=== PATIENT | female | born 1985 | race Caucasian/White ===

== ENCOUNTER 2022-10-29 17:16 | Emergency (ER) | payer OTHER, SELFPAY ==
--- NOTE | 2022-10-29 17:20 | ED.FEMALEGU ---
HPI - Female Genitourinary General Chief complaint: Urogenital-Female Stated complaint: sugar in urine Time Seen by Provider: 10/29/22 17:19 Source: patient Mode of arrival: ambulatory Limitations: no limitations History of Present Illness HPI Narrative: Haley is a 37-year-old female patient presenting to the clinic today with complaints of sugar in her urine. She reports that she was seen for a pre-employment screening last week and was contacted yesterday regarding sugar in her urine and she notified her PCP and they stated she needed to be evaluated prior to seeing her primary care doctor next week. She denies any increasing urination, increase in hunger, or increase in thirst. She denies any urinary symptoms or back pain. No history of diabetes. Related Data Allergies Allergy/AdvReac Type Severity Reaction Status Date / Time Penicillins Allergy Severe ITCHEY RASH Verified 10/29/22 17:20 Review of Systems Review of Systems: Pertinent positives per HPI. Patient denies any fever, chills, rash, headache, visual changes, dizziness, cough, runny nose, sore throat, shortness of breath, chest pain, palpitations, nausea, vomiting, diarrhea, constipation, abdominal pain, or any urinary issues. PMFSH Comments At the time of my signature, I reviewed and agree with the nursing past medical, surgical, social, and family history. There is no relevant family history pertinent to the patient complaint. Exam Narrative: General: Well-developed, well nourished, in no apparent distress. Head: Normocephalic, atraumatic. Cardio: Regular rate and rhythm, s1 and s2 normal, no murmur appreciated. Resp: Clear to auscultation bilaterally, no rhonchi, rales, wheezing or rubs. Abdomen: Soft, pliable, bowel sounds present in all quadrants, non-tender to palpation, no organomegly, no CVAT tenderness. Course Course Emergency Course: Portions of this record may have been created with voice recognition software. Level of Care: Express Care Visit Vital Signs Vital signs: Vital Signs Temperature 36.7 C 10/29/22 17:23 Pulse Rate 91 10/29/22 17:23 Respiratory Rate 16 10/29/22 17:23 Blood Pressure 132/104 H 10/29/22 17:23 Pulse Oximetry 100 10/29/22 17:23 Temperature 36.7 C 10/29/22 17:23 Pulse Rate 91 10/29/22 17:23 Respiratory Rate 16 10/29/22 17:23 Blood Pressure 132/104 H 10/29/22 17:23 Pulse Oximetry 100 10/29/22 17:23 Vital signs reviewed MDM - Female Genitourinary MDM Narrative Medical decision making narrative: At the time of visit patient is resting comfortably on the exam table. UA and blood glucose was checked in the clinic today. Nonfasting random blood sugar was 129 in the clinic today. Urinalysis was negative for any glucose however did show 1+ leukocyte. Patient denies any urinary symptoms so we will send this for culture. Recommend follow-up with her PCP on Monday as scheduled. Supportive measures were discussed with the patient she voiced understanding of discharge instructions agrees to treatment plan Differential Diagnosis Differential diagnosis: Likely urinary tract infection and other (Glucosuria, hyperglycemia) Lab Data Labs: Lab Results 10/29/22 Range/Units 17:35 POC Capillary Glucose 129 H (65-105) mg/dl Urine Glucose Negative Reference Range: Negative Urine Bilirubin Negative Reference Range: Negative Urine Ketone Negative Reference Range: Negative Urine Specific [place] 1.010 Reference Range:1.001-1.035 Urine Blood Negative Reference Range: Negative * * Urine pH 6.
[2022-10-29 17:23] VITALS: BP 132/104; PULSE 91; RESP 16; TEMP 36.7; O2SAT 100
[2022-10-29 17:38] LABS: Glucose Point of Care 129 mg/dl (65-105)
== END 2022-10-29 17:41 | disposition home or self-care (01) ==
PROVIDERS: Emergency Provider Nurse Practitioner Family; PCP Internal Medicine
DX: R73.9 Hyperglycemia, unspecified (principal); R82.71 Bacteriuria
CPT/HCPCS: 81003; 82948; 87086; 99213; G0463

== ENCOUNTER 2022-12-23 15:51 | Emergency (ER) | payer OTHER, SELFPAY ==
[2022-12-23 16:04] VITALS: BP 128/84; PULSE 100; RESP 16; TEMP 36.6; O2SAT 100
--- NOTE | 2022-12-23 16:07 | ED.URI ---
HPI - URI/Sore Throat General Chief Complaint: Upper Respiratory Infection Stated Complaint: SORE THROAT Time Seen by Provider: 12/23/22 16:07 Source: patient Mode of arrival: ambulatory Limitations: no limitations History of Present Illness HPI Narrative: Patient is a 37-year-old female who presents with sore throat for a week. Patient states sore throat his increased in pain. Denies any congestion, ear pain, fever, chills, nausea, vomiting, diarrhea. States it just hurts to swallow. Reports frequent strep infections. Still has her tonsils Related Data Home Medications Medication Instructions Recorded Confirmed norethindrone 1 mg-ethinyl 1 tablet PO DAILY 12/23/22 12/23/22 estradiol 10 mcg (24)-iron 10 mcg(2) tablet (Lo Loestrin Fe) Allergies Allergy/AdvReac Type Severity Reaction Status Date / Time Penicillins Allergy Severe ITCHEY RASH Verified 12/23/22 15:59 Review of Systems Review of Systems: All systems reviewed & are unremarkable except as noted in HPI and below Constitutional: Constitutional: Denies body ache(s), Denies fever(s), Denies headache(s), Denies malaise and Denies weakness Eyes: Eyes: Denies loss of vision ENT: Denies otalgia, Denies headache(s), Denies nasal congestion, Denies sinus pain and Reports sore throat Cardiovascular: Cardiovascular: Denies chest pain, Denies irregular heart rhythm and Denies dyspnea Respiratory: Respiratory: Denies cough and Denies dyspnea Gastrointestinal: Gastrointestinal: Denies abdominal pain, Denies melena, Denies hematochezia, Denies diarrhea, Denies nausea and Denies vomiting Musculoskeletal: Musculoskeletal: Denies back pain, Denies myalgias and Denies arthralgias Integumentary/Breasts: Skin/Breast: Denies pruritus and Denies rash Neurologic: Denies headache(s), Denies loss of vision and Denies weakness Psychiatric: Psychiatric: Reports no additional psychiatric complaints PMFSH Comments At time of signature, agree with nursing past medical, surgical, social and family history. There is no relevant family history pertinent to the presenting complaint. Exam Const: General: cooperative, healthy appearing, comfortable, no acute distress and well nourished Nutritional Appearance: well nourished Orientation/consciousness: patient oriented x3 Limitations: no limitations HENMT: Head: normal to inspection, normocephalic and atraumatic Ears: hearing grossly normal bilaterally, external ears normal, TM's normal bilaterally and EAC's normal Face/Nose/Sinus: Normal external nose present, Normal nares present, Normal nasal mucous membranes and turbinates present, Normal septum present, normal facial exam, sinuses nontender and face symmetric Face and sinus: normal facial exam, sinuses nontender and face symmetric Mouth: Yes Normal oral and palatal mucosa present, Yes lip normal and Yes moist mucous membranes Teeth and gingiva: dentition normal Throat: uvula midline, abnormal tonsil bilateral erythema, exudates, hypertrophy 3+ and pitting, posterior oropharynx abnormal edema, erythema and exudates and postnasal drainage Eyes: General: appearance normal, both eyes and all related structures Alignment and Position: alignment normal and position normal Periorbital: periorbital findings normal Eyelids: eyelids normal Pupils: Equal, round and reactive pupils present Neck: Neck: normal visual inspection, full ROM, no lymphadenopathy and supple Chest: Chest palpation & inspection: normal inspection of the chest and normal palpation of entire chest wall Resp: Effort & Inspection: normal respiratory effort and able to speak in complete sentences Auscultation: clear to auscultation bilaterally, no crackles, no rales, no rhonchi and no wheezes Cardio: Rate: regular rate Rhythm: regular rhythm Heart sounds: S1 normal heart sound present and S2 normal heart sound present GI: Inspection: normal to inspection Skin: General skin exam: normal color and no rash
== END 2022-12-23 16:28 | disposition home or self-care (01) ==
PROVIDERS: Emergency Provider Nurse Practitioner Family; PCP Internal Medicine
DX: J02.0 Streptococcal pharyngitis (principal)
CPT/HCPCS: 87880; 99213; G0463

== ENCOUNTER 2024-02-14 13:43 | Outpatient (CLI) | payer OTHER, SELFPAY ==
--- NOTE | ~2024-02-14 | MM_ITS ---
EXAMINATION: MM screening [facility] BI w damien HISTORY: Screening TECHNIQUE: Craniocaudal and mediolateral oblique 3-D tomosynthesis images were obtained and synthetic 2-D images were generated. CAD analysis was submitted and interpreted. COMPARISON: No prior mammogram is available for comparison at this institution. BREAST PARENCHYMAL COMPOSITION: Not dense: There are scattered areas of fibroglandular density. FINDINGS: There is an asymmetry medially in the right breast on CC view. There are no suspicious mass es, calcifications or architectural distortion in the left breast to suggest malignancy. IMPRESSION: 1. Right breast asymmetry medially on CC view. 2. Additional mammographic views and possible breast ultrasound are recommended. BI-RADS Category 0: Incomplete: Needs additional imaging evaluation. Reviewed, dictated and finalized at location B. IMPRESSION: 1. Right breast asymmetry medially on CC view. 2. Additional mammographic views and possible breast ultrasound are recommended . BI-RADS Category 0: Incomplete: Needs additional imaging evaluation.
== END 2024-02-14 13:44 | disposition home or self-care (01) ==
LOC: CHSIMG 13:43
PROVIDERS: PCP Internal Medicine; Visit Provider Obstetrics & Gynecology
DX: Z12.31 Encounter for screening mammogram for malignant neoplasm of breast (principal); R92.8 Other abnormal and inconclusive findings on diagnostic imaging of breast
CPT/HCPCS: 77063; 77067

== ENCOUNTER 2024-02-27 09:00 | Outpatient (CLI) | payer OTHER, SELFPAY ==
--- NOTE | ~2024-02-27 | MMUS_ITS ---
EXAMINATION: MM diagnostic trena RT w damien, US breast RT limited HISTORY: Follow-up right breast asymmetry TECHNIQUE: Additional 3-D tomosynthesis images of the right breast were performed and synthetic 2-D i mages were generated. CAD analysis was submitted and interpreted. High resolution Limited right breas t ultrasound was performed. COMPARISON: 02/14/2024 BREAST PARENCHYMAL COMPOSITION: Not dense: There are scattered areas of fibroglandular density. FINDINGS: MAMMOGRAPHIC FINDINGS: There are no suspicious masses, calcifications or architectural distortion in the right breast to sug gest malignancy. The area of asymmetry in the lower inner quadrant compresses with spot views, compat ible with superimposed fibroglandular tissue. ULTRASOUND: Limited right breast ultrasound: Normal heterogeneous echotexture without focal solid or cystic mass. IMPRESSION: 1. No evidence for malignancy in the right breast. 2. Routine yearly screening mammogram and regular clinical breast examination are recommended. BI-RADS Category 1: Negative Reviewed, dictated and finalized at location B. IMPRESSION: 1. No evidence for malignancy in the right breast. 2. Routine yearly screening mammogram and regular clinical breast examination a re recommended. BI-RADS Category 1: Negative
== END 2024-02-27 09:01 | disposition home or self-care (01) ==
LOC: CHSIMG 09:01
PROVIDERS: PCP Internal Medicine; Visit Provider Obstetrics & Gynecology
DX: R92.8 Other abnormal and inconclusive findings on diagnostic imaging of breast (principal)
CPT/HCPCS: 76642; 77061; 77065; G0279

== ENCOUNTER 2024-10-01 18:12 | Emergency (ER) | payer OTHER, SELFPAY ==
[2024-10-01 18:33] VITALS: BP 132/88; PULSE 86; RESP 16; TEMP 36.6; O2SAT 100
[2024-10-01 18:56] LABS: EDSTREPNEGPOS1 Negative (Negative)
--- NOTE | 2024-10-01 19:02 | ED.URI ---
HPI - URI/Sore Throat General Chief Complaint: Upper Respiratory Infection Stated Complaint: SORE THROAT/COUGH Time Seen by Provider: 10/01/24 19:02 Source: patient, RN notes reviewed and old records reviewed Mode of arrival: ambulatory Limitations: no limitations History of Present Illness HPI Narrative: patient presents with complaints of cough and sore throat for 1 week. She reports that the sore throat is the worst of her symptoms. She has been taking Tylenol and ibuprofen with moderate relief. She is unsure if fever status. Does states that she is more tired than normal. She is able to swallow and manage own secretions, but states swallowing does increase her pain. No drooling or stridor noted. Related Data Home Medications ?Medication ?Instructions ?Recorded ?Confirmed ?Last Taken ?Type norethindrone 1 mg-ethinyl 1 tablet PO DAILY 12/23/22 12/23/22 Unknown History estradiol 10 mcg (24)-iron 10 mcg(2) tablet (Lo Loestrin Fe) Allergies Allergy/AdvReac Type Severity Reaction Status Date / Time Penicillins Allergy Severe ITCHEY RASH Verified 12/23/22 15:59 Review of Systems Review of Systems: All systems reviewed & are unremarkable except as noted in HPI and below Constitutional: Constitutional: Reports no additional constitutional complaints ENT: Reports system reviewed and no additional complaints, except as documented and Reports sore throat Cardiovascular: Cardiovascular: Reports no additional cardiovascular complaints Respiratory: Respiratory: Reports no additional respiratory complaints and Reports cough Gastrointestinal: Gastrointestinal: Reports no additional gastrointestinal complaints PMFSH Comments At the time of my signature, I reviewed and agree with the nursing past medical, surgical, social, and family history. There is no relevant family history pertinent to the patient complaint. Exam Const: General: cooperative, no acute distress, alert and awake Orientation/consciousness: oriented to person, oriented to place and oriented to time HENMT: Head: normal to inspection Ears: TM's normal bilaterally Mouth: Yes moist mucous membranes Throat: abnormal tonsil bilateral erythema and hypertrophy 2+ and posterior oropharynx abnormal erythema Resp: Effort & Inspection: normal respiratory effort and able to speak in complete sentences Auscultation: clear to auscultation bilaterally, no crackles, no rales, no rhonchi and no wheezes Cardio: Palpation: normal PMI Rate: regular rate Rhythm: regular rhythm Heart sounds: S1 normal heart sound present and S2 normal heart sound present Neuro: General: oriented to person, oriented to place and oriented to time Cranial nerves: Yes CN's II-XII intact bilaterally Psych: Appearance: grossly normal Thought process: Normal thought process present Insight: Good insight present (Psych) Judgement: Good judgement present (Psych) Course Course Level of Care: Express Care Visit Vital Signs Vital signs: Vital Signs Temperature 97.9 F 10/01/24 18:33 Pulse Rate 86 10/01/24 18:33 Respiratory Rate 16 10/01/24 18:33 Blood Pressure 132/88 10/01/24 18:33 Pulse Oximetry 100 10/01/24 18:33 Temperature 97.9 F 10/01/24 18:33 Pulse Rate 86 10/01/24 18:33 Respiratory Rate 16 10/01/24 18:33 Blood Pressure 132/88 10/01/24 18:33 Pulse Oximetry 100 10/01/24 18:33 Reviewed MDM - URI/Sore Throat MDM Narrative Medical decision making narrative: Negative strep, culture pending. Given physical exam, will treat as tonsillitis. Patient penicillin allergic. Start azithromycin and a prednisone burst. Discharge instructions reviewed with patient, as well as provided in writing per nursing staff. The instructions also include specific and strict return/GO TO THE ER as well as f/u information. All questions have been answered, and the patient deny any further questions with discharge and discharge plan. Some parts of this dictation were generated by voice recognition software and may contain typographical and/or grammatical inaccuracies. Differential Diagnosis Differential diagnosis: Likely upper respiratory infection, otitis media, viral infection and influenza Medical Records Attestation: I reviewed the patient's medical records. Lab Data Attestation: I reviewed the patient's lab results. Labs: Lab Results 10/01/24 Range/Units 18:52 POC Grp A Strep Screen Negative (Negative) Discharge Plan Discharge Clinical Impression: Acute tonsillitis Qualifiers: Pharyngitis/tonsillitis etiology: unspecified etiology Qualified Code(s): J03.90 - Acute tonsillitis, unspecified Patient Disposition: Home, Self-Care Condition: Stable Instructions: Antibiotic Form, Tonsillitis (ED) Additional Instructions: take medications as prescribed. Follow-up with primary care provider. Emergency department for any new or worse symptoms Patient Language: Portuguese Prescriptions: New azithromycin 250 mg tablet See Rx Instructions .ROUTE .COMPLEX Qty: 6 0RF Rx Instructions: For 250 mg dose pack: take 500 mg today (day 1), then 250 mg for 4 days (days 2-5) prednisone 50 mg tablet 50 mg PO DAILY Qty: 5 0RF No Action Lo Loestrin Fe 1 mg-10 mcg (24)/10 mcg (2) Tablet 1 tablet PO DAILY clindamycin HCl 300 mg capsule 300 mg PO Q8H 10 Days Qty: 30 0RF Follow-up/Referrals: Adam Trujillo MD [Primary Care Provider] - 2 Weeks Time of Disposition: 19:13
== END 2024-10-01 19:17 | disposition home or self-care (01) ==
PROVIDERS: Emergency Provider Nurse Practitioner Family; PCP Internal Medicine
DX: J03.90 Acute tonsillitis, unspecified (principal)
CPT/HCPCS: 87081; 87880; 99213; G0463

== ENCOUNTER 2025-05-02 13:47 | Outpatient (CLI) | payer OTHER, SELFPAY ==
--- NOTE | ~2025-05-02 | MM_ITS ---
EXAMINATION: MM screening [facility] BI w damien HISTORY: Screening TECHNIQUE: Craniocaudal and mediolateral oblique 3-D tomosynthesis images were obtained and synthetic 2-D images were generated. CAD analysis was submitted and interpreted. COMPARISON: Comparison to multiple prior studies sequentially, with oldest reviewed study dated 02/14/2024. BREAST PARENCHYMAL COMPOSITION: Not dense: There are scattered areas of fibroglandular density. FINDINGS: There is no evidence of suspicious mass, calcification, or architectural distortion to suggest malignancy in either breast. There has been no suspicious interval change. IMPRESSION: 1. No mammographic evidence of malignancy. 2. Recommend routine screening mammography in one year. BI-RADS Category 1: Negative Reviewed, dictated and finalized at location B.
== END 2025-05-02 13:48 | disposition home or self-care (01) ==
LOC: CHSIMG 13:48
PROVIDERS: PCP Internal Medicine; Visit Provider Obstetrics & Gynecology
DX: Z12.31 Encounter for screening mammogram for malignant neoplasm of breast (principal)
CPT/HCPCS: 77063; 77067